=== PATIENT | male | born 1980 | race Caucasian/White ===

== ENCOUNTER 2019-06-12 09:41 | Emergency (ER) | payer SELFPAY ==
[2019-06-12] MEDS ORDERED: INSULIN -REGULAR HUMAN 50 UNIT/0.5 ML ML ONE (11:15)
[2019-06-12] MEDS ORDERED: NA CHLORIDE 0.9% 1,000 ML ONE ×2 (11:16→14:18)
[2019-06-12 11:31] LABS: Absolute Lymphocytes (CBC) 1.6 K/uL (0.7-4.9); Basophils % 0.8 % (0-1.3); Hematocrit 44.4 % (39.6-49.0); MPV 9.8 fL (7.6-11.3); RBC Red Blood Cell Count 5.05 M/uL (4.33-5.43)
[2019-06-12 12:43] LABS: Urine Blood TRACE (NEG); Urine Glucose 2+ (NEG); Urine Protein NEGATIVE (NEG)
[2019-06-12 13:36] LABS: Potassium 3.8 mmol/L (3.5-5.1)
[2019-06-12 13:37] LABS: Potassium 3.9 mmol/L (3.5-5.1)
[2019-06-12 16:22] LABS: BUN Blood Urea Nitrogen 13 mg/dL (7-18); Bicarbonate 21 mmol/L (21-32); Glucose Level 199 mg/dL (74-106); Potassium 3.9 mmol/L (3.5-5.1); Sodium Level 137 mmol/L (136-145)
--- NOTE | 2019-06-12 16:59 | EDPHYS ---
Physician Documentation [facility] Name: Piotr Frederick Age: 38 yrs Sex: Male : 1980 Arrival Date: 06/12/2019 Time: 09:43 Bed 14 Private MD: ED Physician Pedro Jennings HPI: 06/12 11:37 This 38 yrs old Male presents to ER via Ambulatory with complaints of High kdr Blood Sugar. 11:37 The patient or guardian reports generalized fatigue, hyperglycemia, polydipsia, kdr polyuria, that was potentially precipitated by no particular event, with the patient's symptoms witnessed by. Onset: The symptoms/episode began/occurred gradually, 11 day(s) ago. Associated signs and symptoms: Pertinent positives: nausea, polydipsia, polyuria, Pertinent negatives: anorexia, constipation, diaphoresis, diarrhea, dry skin, hair loss, ketones in urine, polyphagia, seizure activity, skin flushing, urinary incontinence, vomiting. Associated signs and symptoms: Pertinent positives: Blurry Vision. Current symptoms: In the emergency department the patient's symptoms are unchanged from the initial presentation. The patient has not experienced similar symptoms in the past. The patient has been recently seen by a physician: Was in a local clinic yesterday and had blood drawn which he was notified of today. At that time, he was instructed to come to the ED for high BS.. He has an uncle who is diabetic. Historical: - Allergies: 10:03 No Known Allergies; ss - Home Meds: 10:03 None [Active]; ss - PMHx: 10:03 None; ss - PSHx: 10:03 Appendectomy; ss - Immunization history:: Adult Immunizations up to date, Flu vaccine is not up to date. - Coronavirus screen:: The patient has NOT traveled to [place], [place], or [place] in the past 14 days. The patient has NOT had contact with known/suspected case of Coronavirus?. - Social history:: Smoking status: Patient reports the use of cigarette tobacco products, smokes one-half pack cigarettes per day. - Ebola Screening: : Patient negative for fever greater than or equal to 101.5 degrees Fahrenheit, and additional compatible Ebola Virus Disease symptoms Patient denies exposure to infectious person Patient denies travel to an Ebola-affected area in the 21 days before illness onset No symptoms or risks identified at this time. ROS: 11:37 Constitutional: Negative for fever, chills, and weight loss, Eyes: Negative for injury, kdr pain, redness, and discharge, ENT: Negative for injury, pain, and discharge, Neck: Negative for injury, pain, and swelling, Cardiovascular: Negative for chest pain, palpitations, and edema, Respiratory: Negative for shortness of breath, cough, wheezing, and pleuritic chest pain, Abdomen/GI: Negative for abdominal pain, nausea, vomiting, diarrhea, and constipation, Back: Negative for injury and pain, : Negative for injury, bleeding, discharge, and swelling, MS/Extremity: Negative for injury and deformity, Skin: Negative for injury, rash, and discoloration, Psych: Negative for depression, anxiety, suicide ideation, homicidal ideation, and hallucinations, Allergy/Immunology: Negative for hives, rash, and allergies, Hematologic/Lymphatic: Negative for swollen nodes, abnormal bleeding, and unusual bruising. 11:37 Neuro: Positive for visual changes, Negative for altered mental status, dizziness, gait disturbance, headache, hearing loss, loss of consciousness, numbness. 11:37 Endocrine: Positive for polydipsia, polyuria. Exam: 14:00 Constitutional: This is a well developed, well nourished patient who is awake, alert, kdr and in no acute distress. Head/Face: Normocephalic, atraumatic. Eyes: Pupils equal round and reactive to light, extra-ocular motions intact. Lids and lashes normal. Conjunctiva and sclera are non-icteric and not injected. Cornea within normal limits. Periorbital areas with no swelling, redness, or edema. Neck: Trachea midline, no thyromegaly or masses palpated, and no cervical lymphadenopathy. Supple, full range of motion without nuchal rigidity, or vertebral point tenderness. No Meningismus. Chest/axilla: Normal chest wall appearance and motion. Nontender with no deformity. No lesions are appreciated. Vital Signs: 10:03 BP 159 / 106; Pulse 103; Resp 16 S; Temp 98.3(O); Pulse Ox 97% on R/A; Weight 75.75 kg ss (R); Height 5 ft. 7 in. (170.18 cm) (R); Pain 3/10; 11:51 BP 141 / 91; Pulse 82; Resp 16; Temp 97.9(O); Pulse Ox 98% on R/A; mh5 12:30 BP 145 / 100; Pulse 100; Resp 17; Pulse Ox 100% on R/A; rb1 13:30 BP 133 / 98; Pulse 83; Resp 18; Pulse Ox 98% on R/A; rb1 14:30 BP 138 / 107; Pulse 96; Resp 17; Pulse Ox 98% on R/A; rb1 15:30 BP 142 / 112; Pulse 81; Resp 17; Pulse Ox 100% on R/A; rb1 16:30 BP 145 / 109; Pulse 83; Resp 19; Pulse Ox 100% on R/A; rb1 17:15 BP 144 / 108; Pulse 85; Resp 17; Pulse Ox 99% on R/A; rb1 10:03 Body Mass Index 26.16 (75.75 kg, 170.18 cm) ss MDM: 16:56 Patient medically screened. kdr 18:30 Data reviewed: vital signs, nurses notes, lab test result(s), radiologic studies. kdr Counseling: I had a detailed discussion with the patient and/or guardian regarding: the historical points, exam findings, and any diagnostic results supporting the discharge/admit diagnosis, lab results, the need for outpatient follow up. 06/12 10:14 Order name: Glucose, Ancillary Testing; Complete Time: 10:49 EDMS 06/12 10:49 Order name: CBC with Diff; Complete Time: 11:42 kdr 06/12 10:49 Order name: Chem 7; Complete Time: 13:40 kdr 06/12 10:49 Order name: HgA1c kdr 06/12 12:29 Order name: Urine Dipstick--Ancillary (enter results); Complete Time: 13:40 bd 06/12 12:48 Order name: Chem 7: Make certain the patient has had all of the fluid bolus before this kdr lab is drawn; Complete Time: 13:40 06/12 10:49 Order name: Urine Dipstick-Ancillary (obtain specimen); Complete Time: 12:28 kdr 06/12 12:48 Order name: FSBS; Complete Time: 13:44 kdr 06/12 12:58 Order name: Glucose, Ancillary Testing; Complete Time: 13:40 EDMS 06/12 13:59 Order name: Chem 7: Repeat after two liter bolus complete; Complete Time: 16:53 kdr Administered Medications: 11:11 Drug: NS 0.9% 1000 ml Route: IV; Rate: 1 bolus; Site: right antecubital; rb1 12:22 Follow up: IV Status: Completed infusion rb1 11:11 Drug: Insulin Regular Human 6 units {Co-Signature: [email or web address] (Carito Dupree RN).} Route: IVP; rb1 Site: right antecubital; 11:25 Follow up: Response: No adverse reaction rb1 14:11 CANCELLED (provider discretion): NS 0.9% 1000 ml IV at 1 bolus Per protocol; 1000 mL rb1 bolus 14:27 Drug: NS 0.9% 1000 ml Route: IV; Rate: 1 bolus; Site: left antecubital; rb1 15:30 Follow up: IV Status: Completed infusion rb1 Point of Care Testing: Blood Glucose: 12:45 Blood Glucose: 240 mg/dL; rb1 Ranges: Critical Glucose Levels:Adult <50 mg/dl or >400 mg/dl <40 mg/dl or >180 mg/dl Disposition: 06/12/19 16:56 Discharged to Home. Impression: Hyperglycemia, unspecified, Diabetes Mellitus. - Condition is Stable. - Discharge Instructions: Basic Carbohydrate Counting for Diabetes Mellitus, Blood Glucose Monitoring, Adult, Diabetes Mellitus and Food, Hyperglycemia, [id number]. - Medication Reconciliation Form, Thank You Letter form. - Follow up: Private Physician; When: 2 - 3 days; Reason: If symptoms return, Further diagnostic work-up, Recheck today's complaints, Continuance of care, Re-evaluation by your physician. - Problem is new. - Symptoms have improved. - Notes: Begin the medications that you have been prescribed by your doctors recently Signatures: Dispatcher [employer] EDPedro Salomon MD MD kdr Jen Sarabia RN RN Karissa Adler, RN RN rb1 Carito Dupree RN jl7 Corrections: (The following items were deleted from the chart) 14:11 13:54 NS 0.9% 1000 ml IV at 1 bolus Per protocol; 1000 mL bolus ordered. kdr rb1 17:22 16:56 06/12/2019 16:56 Discharged to Home. Impression: Hyperglycemia, unspecified; rb1 Diabetes Mellitus. Condition is Stable. Forms are Medication Reconciliation Form, Thank You Letter, Antibiotic Education, Prescription Opioid Use. Follow up: Private Physician; When: 2 - 3 days; Reason: If symptoms return, Further diagnostic work-up, Recheck today's complaints, Continuance of care, Re-evaluation by your physician. Problem is new. Symptoms have improved. kdr
--- NOTE | 2019-06-12 16:59 | ER ---
Nurse's Notes [facility] Name: Piotr Frederick Age: 38 yrs Sex: Male : 1980 Arrival Date: 06/12/2019 Time: 09:43 Bed 14 Private MD: Diagnosis: Hyperglycemia, unspecified;Diabetes Mellitus Presentation: 06/12 09:56 Presenting complaint: Patient states: Yesterday, I went to the clinic increased thirst, ss urination and blurring of vision. Took blood works yesterday. They called me this morning and said to come to the ER for high blood sugar. BGL at Triage 376. Transition of care: patient was not received from another setting of care. Onset of symptoms was June 12, 2019. Risk Assessment: Do you want to hurt yourself or someone else? Patient reports no desire to harm self or others. Initial Sepsis Screen: Does the patient meet any 2 criteria? No. Patient's initial sepsis screen is negative. Does the patient have a suspected source of infection? No. Patient's initial sepsis screen is negative. Care prior to arrival: None. 09:56 Method Of Arrival: Ambulatory ss 09:56 Acuity: QUE 3 ss Triage Assessment: 10:05 General: Appears in no apparent distress. comfortable, Behavior is calm, cooperative, ca1 appropriate for age. Historical: - Allergies: 10:03 No Known Allergies; ss - Home Meds: 10:03 None [Active]; ss - PMHx: 10:03 None; ss - PSHx: 10:03 Appendectomy; ss - Immunization history:: Adult Immunizations up to date, Flu vaccine is not up to date. - Coronavirus screen:: The patient has NOT traveled to [place], [place], or [place] in the past 14 days. The patient has NOT had contact with known/suspected case of Coronavirus?. - Social history:: Smoking status: Patient reports the use of cigarette tobacco products, smokes one-half pack cigarettes per day. - Ebola Screening: : Patient negative for fever greater than or equal to 101.5 degrees Fahrenheit, and additional compatible Ebola Virus Disease symptoms Patient denies exposure to infectious person Patient denies travel to an Ebola-affected area in the 21 days before illness onset No symptoms or risks identified at this time. Screenin:37 Abuse screen: Denies threats or abuse. Nutritional screening: No deficits noted. rb1 Tuberculosis screening: No symptoms or risk factors identified. Fall Risk None identified. Assessment: 10:37 General: Appears in no apparent distress. comfortable, Behavior is calm, cooperative, rb1 Denies fever. General: Pt. was told by his PCP to come to the ER for high blood sugar.. Pain: Denies pain. Neuro: Level of Consciousness is awake, alert, obeys commands, Oriented to person, place, time, situation. Neuro: Reports blurred vision. Cardiovascular: Capillary refill < 3 seconds is brisk in bilateral fingers. Respiratory: Airway is patent Respiratory effort is even, unlabored, Respiratory pattern is regular, symmetrical. GI: No signs and/or symptoms were reported involving the gastrointestinal system. : Reports urinary frequency. Derm: Skin is pink, warm \T\ dry. 11:30 Reassessment: Patient appears in no apparent distress at this time. No changes from rb1 previously documented assessment. 12:30 Reassessment: Patient appears in no apparent distress at this time. Patient and/or rb1 family updated on plan of care and expected duration. Pain level reassessed. Patient is alert, oriented x 3, equal unlabored respirations, skin warm/dry/pink. Pt. is playing a game on his telephone. 13:30 Reassessment: Patient appears in no apparent distress at this time. No changes from rb1 previously documented assessment. 14:27 Reassessment: Patient appears in no apparent distress at this time. Patient and/or rb1 family updated on plan of care and expected duration. Pain level reassessed. Patient is alert, oriented x 3, equal unlabored respirations, skin warm/dry/pink. 15:25 Reassessment: Patient appears in no apparent distress at this time. No changes from rb1 previously documented assessment. Pt. is sitting in the bedside chair playing on his phone. 15:33 Reassessment: Pt. reports that he is getting agitated because he wants to eat and can't rb1 at this time. 16:33 Reassessment: Patient appears in no apparent distress at this time. Patient and/or rb1 family updated on plan of care and expected duration. Pain level reassessed. Patient is alert, oriented x 3, equal unlabored respirations, skin warm/dry/pink. 17:20 Reassessment: Patient appears in no apparent distress at this time. No changes from rb1 previously documented assessment. Dr. Jennings is at the bedside speaking with pt. Vital Signs: 10:03 BP 159 / 106; Pulse 103; Resp 16 S; Temp 98.3(O); Pulse Ox 97% on R/A; Weight 75.75 kg ss (R); Height 5 ft. 7 in. (170.18 cm) (R); Pain 3/10; 11:51 BP 141 / 91; Pulse 82; Resp 16; Temp 97.9(O); Pulse Ox 98% on R/A; mh5 12:30 BP 145 / 100; Pulse 100; Resp 17; Pulse Ox 100% on R/A; rb1 13:30 BP 133 / 98; Pulse 83; Resp 18; Pulse Ox 98% on R/A; rb1 14:30 BP 138 / 107; Pulse 96; Resp 17; Pulse Ox 98% on R/A; rb1 15:30 BP 142 / 112; Pulse 81; Resp 17; Pulse Ox 100% on R/A; rb1 16:30 BP 145 / 109; Pulse 83; Resp 19; Pulse Ox 100% on R/A; rb1 17:15 BP 144 / 108; Pulse 85; Resp 17; Pulse Ox 99% on R/A; rb1 10:03 Body Mass Index 26.16 (75.75 kg, 170.18 cm) ED Course: 09:43 Patient arrived in ED. as 10:02 Triage completed. ss 10:03 Arm band placed on right wrist. ss 10:06 Pedro Jnenings MD is Attending Physician. kdr 10:59 Inserted saline lock: 20 gauge in right antecubital area, using aseptic technique. rb1 Blood collected. 11:08 Karissa Pichardo, RN is Primary Nurse. rb1 11:53 Patient has correct armband on for positive identification. Bed in low position. Call mh5 light in reach. Warm blanket given. Pulse ox on. NIBP on. 17:22 No provider procedures requiring assistance completed. IV discontinued, intact, rb1 bleeding controlled, No redness/swelling at site. Pressure dressing applied. Administered Medications: 11:11 Drug: NS 0.9% 1000 ml Route: IV; Rate: 1 bolus; Site: right antecubital; rb1 12:22 Follow up: IV Status: Completed infusion rb1 11:11 Drug: Insulin Regular Human 6 units {Co-Signature: [email or web address] (Jahala Dupree RN).} Route: IVP; rb1 Site: right antecubital; 11:25 Follow up: Response: No adverse reaction rb1 14:11 CANCELLED (provider discretion): NS 0.9% 1000 ml IV at 1 bolus Per protocol; 1000 mL rb1 bolus 14:27 Drug: NS 0.9% 1000 ml Route: IV; Rate: 1 bolus; Site: left antecubital; rb1 15:30 Follow up: IV Status: Completed infusion rb1 Point of Care Testing: Blood Glucose: 12:45 Blood Glucose: 240 mg/dL; rb1 Ranges: Outcome: 16:56 Discharge ordered by . kdr 17:22 Patient left the ED. rb1 17:22 Discharged to home ambulatory. rb1 17:22 Condition: stable 17:22 Discharge instructions given to patient, Instructed on discharge instructions, follow up and referral plans. Demonstrated understanding of instructions, follow-up care, Prescriptions given X none Signatures: Pedro Jennings MD MD kdr Martinez, Amelia as Smirch, Shelby, RN RN Karissa Pichardo RN RN [facility] Samantha Live [facility] Ebony Chowdhury RN RN ca1 Carito Dupree RN jl7
[2019-06-12 17:33] VITALS: TEMP 97.9
[2019-06-12 17:38] VITALS: BP 142/112; O2SAT 100
== END 2019-06-12 17:22 | disposition home or self-care (01) ==
LOC: ER 09:41
DX: E11.65 Type 2 diabetes mellitus with hyperglycemia (principal); F17.210 Nicotine dependence, cigarettes, uncomplicated
CPT/HCPCS: 36415; 80048; 81003; 82947; 85025; 96361; 96374; 99284; J7030

== ENCOUNTER 2019-06-14 15:13 | Emergency (ER) | payer SELFPAY ==
[2019-06-14] MEDS ORDERED: NA CHLORIDE 0.9% 2,000 ML ONE (16:13)
[2019-06-14 16:30] LABS: Basophils % 0.9 % (0-1.3); Hematocrit 45.7 % (39.6-49.0); Lymphocytes % 16.2 % (15.3-44.8); MPV 9.7 fL (7.6-11.3); RBC Red Blood Cell Count 5.09 M/uL (4.33-5.43)
[2019-06-14 16:46] LABS: BUN Blood Urea Nitrogen 18 mg/dL (7-18); Bicarbonate 23 mmol/L (21-32); Potassium 4.2 mmol/L (3.5-5.1); Sodium Level 131 mmol/L (136-145)
[2019-06-14 16:49] LABS: Glucose Level 441 mg/dL (74-106)
--- NOTE | 2019-06-14 18:18 | ER ---
Nurse's Notes [facility] Name: Piotr Frederick Age: 38 yrs Sex: Male : 1980 Arrival Date: 06/14/2019 Time: 15:15 Bed 20 Private MD: Diagnosis: Hyperglycemia, unspecified;Acute serous otitis media Presentation: 06/14 15:17 Note pts name called twice in lobby and outside the main entrance, no answer, tw2 registration stated he said "im going outside". 15:32 Presenting complaint: Patient states: a couple of days ago i had blurry vision and went tw2 to the clinic and they told me i had diabetes, this is all brand new to me, i came Tuesday and had my sugar checked then today i tested my sugar and my new meter said high and according to the book, i also have congestion and ear ache in right ear i have some kind of sinus infection. Transition of care: patient was not received from another setting of care. Onset of symptoms was June 14, 2019. Risk Assessment: Do you want to hurt yourself or someone else? Patient reports no desire to harm self or others. Initial Sepsis Screen: Does the patient meet any 2 criteria? HR > 90 bpm. No. Patient's initial sepsis screen is negative. Does the patient have a suspected source of infection? No. Patient's initial sepsis screen is negative. Care prior to arrival: None. 15:32 Method Of Arrival: Ambulatory tw2 15:32 Acuity: QUE 3 tw2 Triage Assessment: 15:33 General: Appears in no apparent distress. Behavior is cooperative, appropriate for age. tw2 Pain: Denies pain. Historical: - Allergies: 15:34 No Known Allergies; tw2 - Home Meds: 15:34 metformin 500 mg Oral Tb24 1 tab 2 times per day [Active]; "other medicines i cant tw2 remember" [Active]; - PMHx: 15:34 Diabetes - NIDDM; tw2 - PSHx: 15:34 Appendectomy; tw2 - Immunization history:: Adult Immunizations. - Coronavirus screen:: The patient has NOT traveled to [place], [place], or [place] in the past 14 days. - Social history:: Smoking status: . - Ebola Screening: : Patient denies travel to an Ebola-affected area in the 21 days before illness onset. Screenin:55 Abuse screen: Denies threats or abuse. Denies injuries from another. Nutritional sv screening: No deficits noted. Tuberculosis screening: No symptoms or risk factors identified. Fall Risk None identified. Assessment: 15:55 General: Appears in no apparent distress. comfortable, well groomed, well developed, sv Behavior is calm, cooperative, appropriate for age. General: Reports that he just got his DM medications filled today and when he checked his BS this morning it was high and it read high again around lunch time and decided to come to the ER. Pain: Denies pain. Neuro: Level of Consciousness is awake, alert, obeys commands, Oriented to person, place, time, situation, Moves all extremities. Full function Gait is steady, Speech is normal. Respiratory: Airway is patent Respiratory effort is even, unlabored, Respiratory pattern is regular, symmetrical. : Reports urinary frequency. Derm: Skin is intact, Skin is pink, warm \\T\\ dry. Musculoskeletal: Range of motion: intact in all extremities. 16:55 Reassessment: Patient appears in no apparent distress at this time. No changes from sv previously documented assessment. Patient and/or family updated on plan of care and expected duration. Pain level reassessed. Patient is alert, oriented x 3, equal unlabored respirations, skin warm/dry/pink. Informed Claudio LOZANO that 1 L NS is done and the BS is 325, ok not to give insulin at this time. 17:59 Reassessment: Patient appears in no apparent distress at this time. Patient and/or ah family updated on plan of care and expected duration. Pain level reassessed. Patient is alert, oriented x 3, equal unlabored respirations, skin warm/dry/pink. fluids completed. FSBS is 252. 18:25 Reassessment: Patient appears in no apparent distress at this time. Patient and/or sv family updated on plan of care and expected duration. Pain level reassessed. Patient is alert, oriented x 3, equal unlabored respirations, skin warm/dry/pink. Vital Signs: 15:35 Pulse 114; Resp 18; Temp 97.1(TE); Pulse Ox 100% on R/A; Weight 75.75 kg; Height 5 ft. tw2 7 in. (170.18 cm) (R); Pain 7/10; 15:35 BP 145 / 100; tw2 16:15 BP 143 / 101; Pulse 98; Resp 16; Pulse Ox 99% ; sv 17:32 BP 145 / 109; Pulse 87; Resp 16; Pulse Ox 99% ; sv 15:35 Body Mass Index 26.16 (75.75 kg, 170.18 cm) tw2 15:35 right ear tw2 ED Course: 15:15 Patient arrived in ED. rg4 15:33 Triage completed. tw2 15:35 Arm band placed on. tw2 15:41 Claudio Roldan PA is PHCP. [facility] 15:41 Lyle Rodríguez MD is Attending Physician. [facility] 15:42 Estela Dutta, LEE is Primary Nurse. sv 15:55 Patient has correct armband on for positive identification. Placed in gown. Bed in low sv position. Call light in reach. Pulse ox on. NIBP on. Door closed. Head of bed elevated. 16:00 Inserted saline lock: 20 gauge in left antecubital area, using aseptic technique. Blood sv collected. Flushed left antecubital with 5 ml normal saline. 16:13 Acetone, Serum Sent. sv 16:13 CBC with Diff Sent. sv 16:13 Basic Metabolic Panel Sent. sv 18:25 No provider procedures requiring assistance completed. IV discontinued, intact, sv bleeding controlled, No redness/swelling at site. Pressure dressing applied. Administered Medications: 16:13 Drug: NS 0.9% 1000 ml Route: IV; Rate: 1000 ml; Site: left antecubital; sv 16:13 Drug: NS 0.9% 1000 ml Route: IV; Rate: 1000 ml; Site: left antecubital; sv 16:58 CANCELLED (Physician Discretion): Insulin Regular Human 10 units IVP once sv Point of Care Testing: Blood Glucose: 15:40 Blood Glucose: 435 mg/dL; tw2 Ranges: Outcome: 18:15 Discharge ordered by . [facility] 18:26 Discharged to home ambulatory. sv 18:26 Condition: stable 18:26 Discharge instructions given to patient, Instructed on discharge instructions, follow up and referral plans. medication usage, DM education. Instructed pt to call and make a PCP appt to get his Diabetes under control. Demonstrated understanding of instructions, follow-up care, medications, Prescriptions given X 1. 18:26 Patient left the ED. sv Signatures: Estela Dutta, RN RN sv Claudio Roldan PA PA jmm Wise, Tara, RN RN tw2 Renata Mock rg4 Shahla Moss, RN RN ah
--- NOTE | 2019-06-14 18:19 | EDPHYS ---
Physician Documentation [facility] Name: Piotr Frederick Age: 38 yrs Sex: Male : 1980 Arrival Date: 06/14/2019 Time: 15:15 Bed 20 Private MD: ED Physician Lyle Rodríguez HPI: 06/14 16:10 This 38 yrs old Male presents to ER via Ambulatory with complaints of High jmm Blood Sugar. 16:10 The patient or guardian reports hyperglycemia. Onset: The symptoms/episode jmm began/occurred today. Associated signs and symptoms: Pertinent positives: polydipsia, polyphagia, polyuria. This is a 38 year old male with a history of dm that presents to the ED with complaints of elevated BGL which was measured at home. Patient also complains of productive cough and right ear ache. Patient recently diagned with DM and prescribed medications which he has not yet recently started. . Historical: - Allergies: 15:34 No Known Allergies; tw2 - Home Meds: 15:34 metformin 500 mg Oral Tb24 1 tab 2 times per day [Active]; "other medicines i cant tw2 remember" [Active]; - PMHx: 15:34 Diabetes - NIDDM; tw2 - PSHx: 15:34 Appendectomy; tw2 - Immunization history:: Adult Immunizations. - Coronavirus screen:: The patient has NOT traveled to [place], [place], or [place] in the past 14 days. - Social history:: Smoking status: . - Ebola Screening: : Patient denies travel to an Ebola-affected area in the 21 days before illness onset. ROS: 16:10 Constitutional: Negative for fever, chills, and weight loss, Cardiovascular: Negative jmm for chest pain, palpitations, and edema, Respiratory: Negative for shortness of breath, cough, wheezing, and pleuritic chest pain. 16:10 ENT: Positive for ear pain. 16:10 Respiratory: Positive for cough. 16:10 Endocrine: Positive for polydipsia, polyphagia, polyuria. 16:10 All other systems are negative. Exam: 16:10 Constitutional: This is a well developed, well nourished patient who is awake, alert, jmm and in no acute distress. Head/Face: atraumatic. Eyes: EOMI, no conjunctival erythema appreciated ENT: Moist Mucus Membranes Neck: Trachea midline, Supple Chest/axilla: Normal chest wall appearance and motion. Cardiovascular: Regular rate and rhythm. No edema appreciated Respiratory: Normal respirations, no respiratory distress appreciated Abdomen/GI: Non distended, soft Back: Normal ROM Skin: General appearance color normal MS/ Extremity: Moves all extremities, no obvious deformities appreciated, no edema noted to the lower extremities Neuro: Awake and alert, normal gait Psych: Behavior is normal, Mood is normal, Patient is cooperative and pleasant 16:10 ENT: TM's: erythema, that is moderate, on the right, Posterior pharynx: erythema, that is mild. Vital Signs: 15:35 Pulse 114; Resp 18; Temp 97.1(TE); Pulse Ox 100% on R/A; Weight 75.75 kg; Height 5 ft. tw2 7 in. (170.18 cm) (R); Pain 7/10; 15:35 BP 145 / 100; tw2 16:15 BP 143 / 101; Pulse 98; Resp 16; Pulse Ox 99% ; sv 17:32 BP 145 / 109; Pulse 87; Resp 16; Pulse Ox 99% ; sv 15:35 Body Mass Index 26.16 (75.75 kg, 170.18 cm) tw2 15:35 right ear tw2 MDM: 16:09 Patient medically screened. krista 18:13 Data reviewed: vital signs, nurses notes. Counseling: I had a detailed discussion with krista the patient and/or guardian regarding: the historical points, exam findings, and any diagnostic results supporting the discharge/admit diagnosis, lab results, the need for outpatient follow up, to return to the emergency department if symptoms worsen or persist or if there are any questions or concerns that arise at home. Medical screen evaluation completed. [facility]. Medical screen evaluation completed. [facility]. ED course: Patient is alert and non toxic in appearance. I do not suspect DKA. Patient will be treated with oral abx for om. Advised to follow up with pcp and take prescribed medication. Patient understood and agrees with the plan of care. . 02 16:02 Order name: Basic Metabolic Panel sv 06/14 16:05 Order name: CBC with Diff sv 06/14 16:05 Order name: Acetone, Serum sv 06/14 16:38 Order name: Acetone Level; Complete Time: 16:53 EDMS 06/14 16:38 Order name: CBC with Automated Diff; Complete Time: 16:39 [facility] 06/14 16:50 Order name: Basic Metabolic Panel; Complete Time: 16:53 [facility] 06/14 16:10 Order name: Urine Dipstick-Ancillary (obtain specimen); Complete Time: 18:07 [facility] 06/14 17:08 Order name: Glucose, Ancillary Testing; Complete Time: 17:21 [facility] 06/14 18:08 Order name: Urine Dipstick--Ancillary (enter results) [facility] 06/14 18:13 Order name: Glucose, Ancillary Testing; Complete Time: 18:16 EDMS Administered Medications: 16:13 Drug: NS 0.9% 1000 ml Route: IV; Rate: 1000 ml; Site: left antecubital; sv 16:13 Drug: NS 0.9% 1000 ml Route: IV; Rate: 1000 ml; Site: left antecubital; sv 16:58 CANCELLED (Physician Discretion): Insulin Regular Human 10 units IVP once sv Point of Care Testing: Blood Glucose: 15:40 Blood Glucose: 435 mg/dL; tw2 Ranges: Critical Glucose Levels:Adult <50 mg/dl or >400 mg/dl <40 mg/dl or >180 mg/dl Disposition: 18:32 Co-signature as Attending Physician, Lyle Rodríguez MD. rn Disposition: 06/14/19 18:15 Discharged to Home. Impression: Hyperglycemia, unspecified, Acute serous otitis media. - Condition is Stable. - Discharge Instructions: Otitis Media, Adult, Hyperglycemia. - Prescriptions for Augmentin 875- 125 mg Oral Tablet - take 1 tablet by ORAL route every 12 hours for 10 days; 20 tablet. - Medication Reconciliation Form, Thank You Letter, Antibiotic Education, Prescription Opioid Use form. - Follow up: Private Physician; When: 2 - 3 days; Reason: Recheck today's complaints, Continuance of care, Re-evaluation by your physician. Signatures: Dispatcher [employer] Estela Hartley, Claudio Campoverde RN, PA PA jmm Nieto, Roman, MD MD rn Wise, Tara, RN RN tw2 Corrections: (The following items were deleted from the chart) 16:58 16:47 Insulin Regular Human 10 units IVP once ordered. [facility] sv 16:58 16:58 Insulin Regular Human 10 units IVP once ordered. sv sv 18:26 18:15 06/14/2019 18:15 Discharged to Home. Impression: Hyperglycemia, unspecified; sv Acute serous otitis media. Condition is Stable. Forms are Medication Reconciliation Form, Thank You Letter, Antibiotic Education, Prescription Opioid Use. Follow up: Private Physician; When: 2 - 3 days; Reason: Recheck today's complaints, Continuance of care, Re-evaluation by your physician. krista
[2019-06-14 18:26] LABS: Urine Blood NEGATIVE (NEG); Urine Glucose 2+ (NEG); Urine Protein NEGATIVE (NEG); Urine Specific Gravity 1.015 (1.005-1.030)
[2019-06-14 18:37] VITALS: TEMP 97.1
[2019-06-14 18:38] VITALS: O2SAT 99
[2019-06-14 18:39] VITALS: BP 145/109
== END 2019-06-14 18:26 | disposition home or self-care (01) ==
LOC: ER 15:13
DX: E11.65 Type 2 diabetes mellitus with hyperglycemia (principal); H66.91 Otitis media, unspecified, right ear
CPT/HCPCS: 36415; 80048; 81003; 82010; 82947; 85025; 99284; J7030